=== PATIENT | male | born 1955 | race Caucasian/White ===

== ENCOUNTER 2020-07-21 07:23 | Emergency (ER) | payer MEDICARE ==
[~2020-07-21] VITALS: Ht 182.9 cm; Wt 115.2 kg
[2020-07-21 07:54] VITALS: BP 169/122
[2020-07-21] MEDS ORDERED: MUPI22OI30 TOP (08:22)
[2020-07-21] MEDS ORDERED: CEPH-572 PO (08:22)
== END 2020-07-21 08:40 | disposition home or self-care (01) ==
LOC: ER 07:23
DX: L03.115 Cellulitis of right lower limb (principal); S80.811A Abrasion, right lower leg, initial encounter; L01.00 Impetigo, unspecified; E11.65 Type 2 diabetes mellitus with hyperglycemia; Z72.89 Other problems related to lifestyle; W54.0XXA Bitten by dog, initial encounter; Y93.89 Activity, other specified; Y92.89 Other specified places as the place of occurrence of the external cause; Y99.8 Other external cause status
CPT/HCPCS: 82948; 99284